=== PATIENT | male | born 1990 | race Caucasian/White ===

== ENCOUNTER 2018-06-21 07:18 | Emergency (ER) | payer OTHER ==
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
[2018-06-21] MEDS ORDERED: HYDROcodone/Acetaminophen 5/325 mg Tablet ONE (08:18)
[2018-06-21] MEDS ORDERED: Ketorolac Tromethamine 60 MG/2 ML VIAL ONE (08:18)
== END 2018-06-21 08:48 | disposition home or self-care (01) ==
LOC: ERS 07:18
DX: S93.401A Sprain of unspecified ligament of right ankle, initial encounter (principal); F17.210 Nicotine dependence, cigarettes, uncomplicated; W18.42XA Slipping, tripping and stumbling without falling due to stepping into hole or opening, initial encounter
CPT/HCPCS: 96372; J1885

== ENCOUNTER 2018-07-15 20:41 | Emergency (ER) | payer SELFPAY ==
[2018-07-15] MEDS ORDERED: HYDROcodone/Acetaminophen 10/325 mg Tablet ONE (21:54)
--- NOTE | 2018-07-15 22:10 | RAD ---
PORTABLE CHEST 07/15/18 PROVIDED CLINICAL HISTORY: Chest pain. FINDINGS: The cardiac and mediastinal silhouette is within normal limits. The lungs appear clear. No pleural fl uid or pneumothorax apparent. The bony thorax appears grossly intact. There is a question of radioluc ent focus within the lateral aspect of the left humeral head, possibly artifactual. IMPRESSION: 1. No evidence for an acute cardiopulmonary process. 2. Possible left humeral lesion. Correlation with dedicated left shoulder radiograph is recommen ded. POS: [facility]
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
== END 2018-07-15 22:18 | disposition home or self-care (01) ==
LOC: ERS 20:41
DX: S16.1XXA Strain of muscle, fascia and tendon at neck level, initial encounter (principal); F17.210 Nicotine dependence, cigarettes, uncomplicated; V43.62XA Car passenger injured in collision with other type car in traffic accident, initial encounter
CPT/HCPCS: 70450; 71045; 72125